=== PATIENT | female | born 1990 | race Caucasian/White ===

== ENCOUNTER 2023-07-20 08:25 | Day surgery (SDC) | payer OTHER ==
[~2023-07-20] VITALS: Ht 180.3 cm; Wt 116.7 kg
[~2023-07-20 08:25] MED LIST: CEPH500 PO; CITALOPRAM HBR40 M8; CLIMARA1 EACH PO; HYDACE5 PO; IBUP400 PO; NAPR550 PO; PROM25 PO; Percocet 5-3251 EACH PO; SIME80CH PO
[2023-07-20] MEDS ORDERED: Celexa20 MG PO (08:53)
--- NOTE | 2023-07-20 10:47 | NUR ---
07/20/23 1047 Virgen Ma ROPIVACAINE 0.5% 30 MLS MIXED & VERIFIED W/ EPI 0.15 ML (1MG/ML) TO MAKE ROPIVACIANE 0.5% 1:200,000 FOR INJECTION AT [facility] BY DR PALUMBO.
[2023-07-20 11:38] VITALS: BP 121/81
--- NOTE | 2023-07-20 12:26 | NUR ---
07/20/23 1226 Abdulaziz Monet PT DENIES PAIN AT DISCHARGE. DISCUSSED IMPORTANCE OF ICE AND ELEVATION. MOTHER PRESENT FOR DISCHARGE INSTRUCTIONS.
== END 2023-07-20 12:20 | disposition home or self-care (01) ==
LOC: ORSCSDS 08:25
PROVIDERS: Podiatrist Foot & Ankle Surgery
PROC: 0QSP04Z Reposition Left Metatarsal with Internal Fixation Device, Open Approach (ICD-10-PCS; principal; 2023-07-20 10:00)
DX: S92.352A Displaced fracture of fifth metatarsal bone, left foot, initial encounter for closed fracture (principal); Z68.34 Body mass index [BMI] 34.0-34.9, adult; Z79.899 Other long term (current) drug therapy
CPT/HCPCS: C1713; J0171; J0690; J1100; J1885; J2405; J2704; J2795; J3010; J7120